=== PATIENT | male | born 1980 | race Hispanic/Latino ===

== ENCOUNTER 2017-11-21 18:38 | Emergency (ER) | payer SELFPAY ==
[2017-11-21] MEDS ORDERED: KETOROLAC 30 MG/ML INJ ONE (19:33)
[2017-11-21] MEDS ORDERED: NA CHLORIDE 0.9% 1,000 ML ONE (19:34)
[2017-11-21] MEDS ORDERED: ONDANSETRON 4 MG/2 ML VIAL ONE (19:34)
[2017-11-21 19:37] LABS: Urine Blood NEGATIVE (NEG); Urine Glucose NEGATIVE (NEG); Urine Protein NEGATIVE (NEG)
[2017-11-21 19:56] LABS: Urine Bacteria <20 /HPF (NONE SEEN); Urine Culture Reflex Order NOT NEEDED; Urine RBC <5 /HPF (NONE SEEN)
[2017-11-21 19:58] LABS: Absolute Lymphocytes (CBC) 2.8 K/uL (0.7-4.9); Absolute Monocytes 0.8 K/uL (0.1-1.3); Absolute Neutrophil 7.3 K/uL (1.8-8.0); Basophils % 0.4 % (0-1.3); Eosinophils % 3.3 % (0-4.4); Hematocrit 47.8 % (39.6-49.0); MCV 85.3 fL (80-100); MPV 10.7 fL (7.6-11.3); Monocytes % 6.8 % (3.3-12.3); RBC Red Blood Cell Count 5.61 M/uL (4.33-5.43)
--- NOTE | 2017-11-21 20:01 | RAD REPORT ---
EXAM DESCRIPTION: CT - Stone Protocol - 11/21/2017 7:49 pm CLINICAL HISTORY: Flank pain. Abd pain;Kidney stones COMPARISON: No comparisons TECHNIQUE: Axial images were obtained without oral or IV contrast. Lack of contrast limits solid org an and vascular assessment. The [id number] spans the entirety of the system partially obscuring uppermost abdomen and lung bases. Coronal reformatted images were obtained and reviewed. All CT scans are performed using dose optimization technique as appropriate and may include automated exposure control or mA/KV adjustment according to patient size. FINDINGS: The lower lung guzman are clear. Imaged portions of the liver and spleen show no suspicious findings on non-contrast imaging. The panc reas and adrenal glands are normal. No pathologic lymphadenopathy in the abdomen or pelvis. Several small left renal calculi are noted the largest measuring 3 mm in the superior pole left kidne y. No right-sided stone is seen. No significant hydronephrosis. No bowel obstruction, free air, free fluid or abscess. Normal appendix noted.Small fat containing umb ilical hernia. No significant bony abnormality. Prominent posterior disc bulge at L5-S1. IMPRESSION: Left nephrolithiasis without hydronephrosis.
[2017-11-21 20:04] LABS: ALT/SGPT 33 U/L (12-78); AST/SGOT 24 U/L (15-37); Albumin 4.4 g/dL (3.4-5.0); Alkaline Phosphatase 79 U/L (45-117); Amylase Level 33 U/L (25-115); BUN Blood Urea Nitrogen 10 mg/dL (7-18); Bicarbonate 25 mmol/L (21-32); Bilirubin Direct 0.1 mg/dL (0-0.2); Bilirubin Total 0.8 mg/dL (0.2-1.0); Glucose Level 89 mg/dL (74-106); Lipase 117 U/L (73-393); Potassium 4.1 mmol/L (3.5-5.1); Sodium Level 141 mmol/L (136-145)
[2017-11-21 20:54] LABS: Blood Morphology Comment NOT SEEN (NOT SEEN); Platelet Estimate ADEQ
--- NOTE | 2017-11-21 21:15 | EDPHYS ---
Physician Documentation [facility] Name: Robel Martin Age: 37 yrs Sex: Male : 1980 Arrival Date: 11/21/2017 Time: 18:40 Bed 19 Private MD: ED Physician Orlando Gaming HPI: 11/21 21:10 This 37 yrs old Male presents to ER via EMS with complaints of Low Back Pain, heather Possible Kidney Stone. 21:10 The patient presents with pain that is acute, with no known mechanism of injury. The heather symptoms are located in the low back, left low back and left mid back. The pain does not radiate. The problem was sustained from unknown cause. Onset: The symptoms/episode began/occurred just prior to arrival. Modifying factors: The patient symptoms are alleviated by nothing, the patient symptoms are aggravated by nothing. Severity of symptoms: At their worst the symptoms were mild, moderate, in the emergency department the symptoms are unchanged. The patient has not experienced similar symptoms in the past. Historical: - Allergies: 18:47 No Known Allergies; em - PMHx: 18:47 Kidney stones; em - PSHx: 18:47 None; em - Immunization history:: Adult Immunizations up to date. - Social history:: Smoking status: Patient/guardian denies using tobacco, Patient uses alcohol. - Ebola Screening: : Patient negative for fever greater than or equal to 101.5 degrees Fahrenheit, and additional compatible Ebola Virus Disease symptoms Patient denies exposure to infectious person Patient denies travel to an Ebola-affected area in the 21 days before illness onset No symptoms or risks identified at this time. - Family history:: not pertinent. ROS: 21:10 Constitutional: Negative for fever, chills, and weight loss, Eyes: Negative for injury, heather pain, redness, and discharge, ENT: Negative for injury, pain, and discharge, Neck: Negative for injury, pain, and swelling, Cardiovascular: Negative for chest pain, palpitations, and edema, Respiratory: Negative for shortness of breath, cough, wheezing, and pleuritic chest pain, Abdomen/GI: Negative for abdominal pain, nausea, vomiting, diarrhea, and constipation, Back: Negative for injury and pain, : Negative for injury, bleeding, discharge, and swelling, MS/Extremity: Negative for injury and deformity, Skin: Negative for injury, rash, and discoloration, Neuro: Negative for headache, weakness, numbness, tingling, and seizure, Psych: Negative for depression, anxiety, suicide ideation, homicidal ideation, and hallucinations, Allergy/Immunology: Negative for hives, rash, and allergies, Endocrine: Negative for neck swelling, polydipsia, polyuria, polyphagia, and marked weight changes, Hematologic/Lymphatic: Negative for swollen nodes, abnormal bleeding, and unusual bruising. 21:10 Back: Positive for pain at rest, flank pain, on the left, of the left low back and left heather mid back. Exam: 21:10 Constitutional: This is a well developed, well nourished patient who is awake, alert, heather and in no acute distress. Head/Face: Normocephalic, atraumatic. Eyes: Pupils equal round and reactive to light, extra-ocular motions intact. Lids and lashes normal. Conjunctiva and sclera are non-icteric and not injected. Cornea within normal limits. Periorbital areas with no swelling, redness, or edema. ENT: Nares patent. No nasal discharge, no septal abnormalities noted. Tympanic membranes are normal and external auditory canals are clear. Oropharynx with no redness, swelling, or masses, exudates, or evidence of obstruction, uvula midline. Mucous membranes moist. Neck: Trachea midline, no thyromegaly or masses palpated, and no cervical lymphadenopathy. Supple, full range of motion without nuchal rigidity, or vertebral point tenderness. No Meningismus. Chest/axilla: Normal chest wall appearance and motion. Nontender with no deformity. No lesions are appreciated. Cardiovascular: Regular rate and rhythm with a normal S1 and S2. No gallops, murmurs, or rubs. Normal PMI, no JVD. No pulse deficits. Respiratory: Lungs have equal breath sounds bilaterally, clear to auscultation and percussion. No rales, rhonchi or wheezes noted. No increased work of breathing, no retractions or nasal flaring. Abdomen/GI: Soft, non-tender, with normal bowel sounds. No distension or tympany. No guarding or rebound. No evidence of tenderness throughout. Back: No spinal tenderness. No costovertebral tenderness. Full range of motion. Male : Normal genitalia with no discharge or lesions. Skin: Warm, dry with normal turgor. Normal color with no rashes, no lesions, and no evidence of cellulitis. MS/ Extremity: Pulses equal, no cyanosis. Neurovascular intact. Full, normal range of motion. Neuro: Awake and alert, GCS 15, oriented to person, place, time, and situation. Cranial nerves II-XII grossly intact. Motor strength 5/5 in all extremities. Sensory grossly intact. Cerebellar exam normal. Normal gait. Psych: Awake, alert, with orientation to person, place and time. Behavior, mood, and affect are within normal limits. Vital Signs: 18:47 BP 140 / 101; Pulse 80; Resp 18; Temp 97.9; Pulse Ox 97% on R/A; Weight 89.81 kg; em Height 5 ft. 9 in. (175.26 cm); Pain 6/10; 20:01 BP 124 / 89; Pulse 66; Resp 17 S; Pulse Ox 95% on R/A; jd3 21:27 BP 110 / 72; Pulse 61; Resp 17 S; Pulse Ox 97% on R/A; jd3 18:47 Body Mass Index 29.24 (89.81 kg, 175.26 cm) em MDM: 19:19 Patient medically screened. [facility] 21:12 Data reviewed: vital signs, nurses notes, lab test result(s), radiologic studies, [facility] doppler. 11/21 19:04 Order name: Urine Dipstick--Ancillary (enter results); Complete Time: 20:51 2 11/21 19:28 Order name: Amylase, Serum; Complete Time: 20:51 [facility] 11/21 19:28 Order name: Basic Metabolic Panel; Complete Time: 20:51 [facility] 11/21 19:28 Order name: CBC with Diff; Complete Time: 21:09 [facility] 11/21 19:28 Order name: Creatinine for Radiology; Complete Time: 20:51 [facility] 11/21 19:28 Order name: Hepatic Function; Complete Time: 20:51 heather 11/21 19:28 Order name: Lipase; Complete Time: 20:51 heather 11/21 19:28 Order name: Urine Microscopic Only; Complete Time: 20:51 [facility] 11/21 19:28 Order name: CT Stone Protocol; Complete Time: 20:51 heather 11/21 19:28 Order name: Urine Culture [facility] 11/21 20:53 Order name: Manual Differential; Complete Time: 21:09 EDMS 11/21 19:28 Order name: IV Saline Lock; Complete Time: 19:44 [facility] 11/21 19:28 Order name: Labs collected and sent; Complete Time: 19:45 [facility] 11/21 19:28 Order name: Urine Dipstick-Ancillary (obtain specimen); Complete Time: 19:45 [facility] Administered Medications: 19:35 Drug: NS 0.9% 1000 ml Route: IV; Rate: 1 bolus; Site: left antecubital; jd3 22:00 Follow up: Response: No adverse reaction; IV Status: Completed infusion; IV Intake: jd3 1000ml 19:35 Drug: TORadol 30 mg Route: IVP; Site: left antecubital; jd3 22:00 Follow up: Response: No adverse reaction d3 19:35 Drug: Zofran 4 mg Route: IVP; Site: left antecubital; jd3 22:00 Follow up: Response: No adverse reaction jd3 21:17 Drug: Flomax 0.4 mg Route: PO; jd3 22:00 Follow up: Response: No adverse reaction [facility] 21:17 Drug: Rocephin - (cefTRIAXone) 1 grams Route: IVPB; Infused Over: 30 mins; Site: left [facility] antecubital; 22:00 Follow up: Response: No adverse reaction; IV Status: Completed infusion jd3 Disposition: 11/21/17 21:15 Discharged to Home. Impression: Hydronephrosis with ureteral stricture, not elsewhere classified. - Condition is Stable. - Discharge Instructions: Kidney Stones, Kidney Stones, [id number], Hydronephrosis. - Prescriptions for Tylenol- Codeine #3 300-30 mg Oral Tablet - take 2 tablet by ORAL route every 6 hours As needed; 30 tablet. Flomax 0.4 mg Oral Capsule, Sust. Release 24 hr - take 1 capsule by ORAL route once daily 1/2 hour following the same meal each day; 14 capsule. Cipro 500 mg Oral Tablet - take 1 tablet by ORAL route every 12 hours for 7 days; 14 tablet. - Medication Reconciliation Form, Thank You Letter, Antibiotic Education, Prescription Opioid Use form. - Follow up: Private Physician; When: 2 - 3 days; Reason: Recheck today's complaints, Continuance of care, Re-evaluation by your physician. Follow up: Aldo Bower MD; When: 2 - 3 days; Reason: Recheck today's complaints, Continuance of care, Re-evaluation by your physician. Follow up: Aldo Bower MD; When: 1 - 2 days; Reason: Recheck today's complaints, Re-evaluation by your physician. - Problem is new. - Symptoms have improved. Signatures: Dispatcher [employer] [facility] Orlando Gaming MD MD cha Munoz, Edgar, SCORING MACHINE OPERATOR SCORING MACHINE OPERATOR em Jam Foss RN RN jd3 Corrections: (The following items were deleted from the chart) 20:53 20:04 CBC Smear Scan ordered. [facility] 22:04 21:15 11/21/2017 21:15 Discharged to Home. Impression: Hydronephrosis with ureteral jd3 stricture, not elsewhere classified. Condition is Stable. Forms are Medication Reconciliation Form, Thank You Letter, Antibiotic Education, Prescription Opioid Use. Follow up: Private Physician; When: 2 - 3 days; Reason: Recheck today's complaints, Continuance of care, Re-evaluation by your physician. Follow up: Aldo Bower; When: 1 - 2 days; Reason: Recheck today's complaints, Re-evaluation by your physician. Problem is new. Symptoms have improved. heather
--- NOTE | 2017-11-21 21:15 | ER ---
Nurse's Notes [facility] Name: Robel Martin Age: 37 yrs Sex: Male : 1980 Arrival Date: 11/21/2017 Time: 18:40 Bed 19 Private MD: Diagnosis: Hydronephrosis with ureteral stricture, not elsewhere classified Presentation: 11/21 18:41 Presenting complaint: EMS states: c/o low back pain, reports hx of kidney stones, em passed a small stone 3 days ago, had blood in urine. [facility] reports they were toned out for unresponsive male in vehicle, PD on scene gave pt option to go to hospital or fpc, smells of ETOH. Transition of care: patient was not received from another setting of care. Onset of symptoms was November 21, 2017. Risk Assessment: Do you want to hurt yourself or someone else? Patient reports no desire to harm self or others. Initial Sepsis Screen: Does the patient meet any 2 criteria? No. Patient's initial sepsis screen is negative. Does the patient have a suspected source of infection? No. Patient's initial sepsis screen is negative. Care prior to arrival: None. 18:41 Method Of Arrival: EMS: [facility] em 19:03 Acuity: BRI 3 iw Triage Assessment: 18:47 General: Appears in no apparent distress. uncomfortable, Behavior is calm, cooperative. em Pain: Complains of pain in left low back and right low back. Historical: - Allergies: 18:47 No Known Allergies; em - PMHx: 18:47 Kidney stones; em - PSHx: 18:47 None; em - Immunization history:: Adult Immunizations up to date. - Social history:: Smoking status: Patient/guardian denies using tobacco, Patient uses alcohol. - Ebola Screening: : Patient negative for fever greater than or equal to 101.5 degrees Fahrenheit, and additional compatible Ebola Virus Disease symptoms Patient denies exposure to infectious person Patient denies travel to an Ebola-affected area in the 21 days before illness onset No symptoms or risks identified at this time. - Family history:: not pertinent. Screenin:54 Abuse screen: Denies threats or abuse. Nutritional screening: No deficits noted. em Tuberculosis screening: No symptoms or risk factors identified. Fall Risk None identified. Assessment: 18:51 General: Appears in no apparent distress. comfortable, Behavior is calm, cooperative, em Smells of alcohol, urine. Pain: Complains of pain in right low back and left low back. Neuro: Level of Consciousness is awake, alert, obeys commands, Oriented to person, place, time, situation. Cardiovascular: Capillary refill < 3 seconds Patient's skin is warm and dry. Respiratory: Airway is patent Respiratory effort is even, unlabored, Respiratory pattern is regular, symmetrical. GI: Abdomen is round non-distended. : Reports blood in urine. Derm: Skin is intact, Skin is pink, warm \T\ dry. Musculoskeletal: Range of motion: intact in all extremities. 19:03 Reassessment: Patient appears in no apparent distress at this time. I agree with above iw assessment by Dick Mahajan LVN. 19:12 Reassessment: Patient appears in no apparent distress at this time. No changes from jd3 previously documented assessment. Patient and/or family updated on plan of care and expected duration. Pain level reassessed. Patient is alert, oriented x 3, equal unlabored respirations, skin warm/dry/pink. General: Appears in no apparent distress. Behavior is calm, cooperative, Smells of alcohol, urine. Reports history of kidney stones. Pain: Complains of pain in left low back and right low back Quality of pain is described as aching, Is continuous, Also complains of nausea. Neuro: Level of Consciousness is awake, alert, obeys commands, Oriented to person, place, time, situation. Cardiovascular: Heart tones S1 S2 present Capillary refill < 3 seconds Patient's skin is warm and dry. Respiratory: Airway is patent Respiratory effort is even, unlabored, Respiratory pattern is regular, symmetrical, Breath sounds are clear bilaterally. GI: Abdomen is round non-distended, Bowel sounds present X 4 quads. Reports nausea, vomiting. : Reports blood in urine. EENT: No signs and/or symptoms were reported regarding the EENT system. Derm: Skin is intact, Skin is dry, Skin is normal, Skin temperature is warm. Musculoskeletal: Circulation, motion, and sensation intact. Range of motion: intact in all extremities. 20:01 Reassessment: Patient appears in no apparent distress at this time. Patient and/or jd3 family updated on plan of care and expected duration. Pain level reassessed. Patient is alert, oriented x 3, equal unlabored respirations, skin warm/dry/pink. 21:46 Reassessment: Patient appears in no apparent distress at this time. Patient and/or jd3 family updated on plan of care and expected duration. Pain level reassessed. Patient is alert, oriented x 3, equal unlabored respirations, skin warm/dry/pink. pt reported understanding of discharge instructions, pt waiting for ride. Vital Signs: 18:47 BP 140 / 101; Pulse 80; Resp 18; Temp 97.9; Pulse Ox 97% on R/A; Weight 89.81 kg; em Height 5 ft. 9 in. (175.26 cm); Pain 6/10; 20:01 BP 124 / 89; Pulse 66; Resp 17 S; Pulse Ox 95% on R/A; jd3 21:27 BP 110 / 72; Pulse 61; Resp 17 S; Pulse Ox 97% on R/A; jd3 18:47 Body Mass Index 29.24 (89.81 kg, 175.26 cm) em ED Course: 18:40 Patient arrived in ED. em 18:51 Patient has correct armband on for positive identification. Bed in low position. Call em light in reach. 18:54 No provider procedures requiring assistance completed. Inserted saline lock: 20 gauge em in left antecubital area, using aseptic technique. Blood collected. 18:55 Splint/sling/ice applied as appropriate. em 19:01 Jam Foss, RN is Primary Nurse. jd3 19:03 Triage completed. iw 19:07 Urine collected: clean catch specimen, clear. [facility] 19:08 Urine Dipstick--Ancillary (enter results) Sent. [facility] 19:19 Orlando Gaming MD is Attending Physician. [facility] 19:47 CT completed. Patient moved to CT via wheelchair. Patient moved back from CT. cw1 19:49 CT Stone Protocol In Process Unspecified. EDMS 21:14 Aldo Bower MD is Referral Physician. heather 21:14 Referral Physician role handed off by Aldo Bower MD heather 21:14 Aldo Bower MD is Referral Physician. heather 21:47 IV discontinued, intact, bleeding controlled, No redness/swelling at site. Pressure jd3 dressing applied. Administered Medications: 19:35 Drug: NS 0.9% 1000 ml Route: IV; Rate: 1 bolus; Site: left antecubital; jd3 22:00 Follow up: Response: No adverse reaction; IV Status: Completed infusion; IV Intake: jd3 1000ml 19:35 Drug: TORadol 30 mg Route: IVP; Site: left antecubital; jd3 22:00 Follow up: Response: No adverse reaction jd3 19:35 Drug: Zofran 4 mg Route: IVP; Site: left antecubital; jd3 22:00 Follow up: Response: No adverse reaction jd3 21:17 Drug: Flomax 0.4 mg Route: PO; jd3 22:00 Follow up: Response: No adverse reaction jd3 21:17 Drug: Rocephin - (cefTRIAXone) 1 grams Route: IVPB; Infused Over: 30 mins; Site: left jd3 antecubital; 22:00 Follow up: Response: No adverse reaction; IV Status: Completed infusion jd3 Intake: 22:00 IV: 1000ml; Total: 1000ml. jd3 Outcome: 21:15 Discharge ordered by . heather 21:47 Discharge instructions given to patient, Instructed on discharge instructions, follow jd3 up and referral plans. medication usage, Demonstrated understanding of instructions, follow-up care, medications, Prescriptions given X 3. 22:00 Discharged to home ambulatory, with family. jd3 22:00 Condition: stable 22:04 Patient left the ED. jd3 Signatures: Dispatcher [employer] Orlando Tee MD MD cha Munoz, Edgar, PIPE BOWLS PAINT TRIMMER PIPE BOWLS PAINT TRIMMER Ning Castellano, Katerin Case RN 1 Moon Trejo [facility] Jam Foss RN RN jd3 Corrections: (The following items were deleted from the chart) 19:22 19:12 General: Appears in no apparent distress. Behavior is calm, cooperative, Smells jd3 of alcohol, urine. jd3
[2017-11-21] MEDS ORDERED: CEFTRIAXONE/SWI 1gm 1 GM/10 ML SYR ONE (21:16)
[2017-11-21] MEDS ORDERED: TAMSULOSIN 0.4 MG SR CAP ONE (21:16)
== END 2017-11-21 22:04 | disposition home or self-care (01) ==
LOC: ER 18:38
DX: N13.1 Hydronephrosis with ureteral stricture, not elsewhere classified (principal); Z87.442 Personal history of urinary calculi
CPT/HCPCS: 36415; 74176; 76377; 80048; 80076; 81003; 81015; 82150; 83690; 85025; 87086; 87088; 96361; 96365; 96375; 99284; J0696; J2405; J7030